=== PATIENT | female | born 1940 | race Caucasian/White ===

== ENCOUNTER 2017-06-05 06:03 | Day surgery (SDC) | payer MEDICARE, OTHER ==
[~2017-06-05] VITALS: Ht 154.9 cm; Wt 46.2 kg
[2017-06-05 06:04] VITALS: BP 120/75
[2017-06-05] MEDS ORDERED: FENTANYL PF 100 MCG/2ML ONE ×2 (07:03→09:20)
[2017-06-05] MEDS ORDERED: MIDAZOLAM 1 MG/ML, 2ML ONE (07:03)
[2017-06-05] MEDS ORDERED: BUPIVACAINE/PF 0.5% ONE (07:10)
[2017-06-05] MEDS ORDERED: THROMBIN 5,000 UNIT VIAL TP ONE (07:10)
[2017-06-05] MEDS ORDERED: KETOROLAC 30 MG/1 ML ONE (07:52)
[2017-06-05] MEDS ORDERED: BUPIVACAINE/PF 0.5% INFIL ONE (08:23)
[2017-06-05] MEDS ORDERED: HYDROmorphone 2 MG/ML, 1ML ONE (08:24)
[2017-06-05] MEDS ORDERED: MEPERIDINE/PF 25MG/0.5ML IVPush PRN (09:00)
[2017-06-05] MEDS ORDERED: hydrALAzine 20 MG/ML, 1ML IV PRN (09:00)
[2017-06-05] MEDS ORDERED: PROMETHAZINE 25 MG/ML, 1ML IV PRN (09:00)
[2017-06-05] MEDS ORDERED: DIAZEPAM 5 MG/ML, 2ML IVPush PRN (09:00)
[2017-06-05] MEDS ORDERED: PROMETHAZINE 12.5 MG SUPP PR PRN (09:00)
[2017-06-05] MEDS ORDERED: ACETAMINOPHEN 325 MG TABLET PO PRN (09:00)
[2017-06-05] MEDS ORDERED: ALBUTEROL SULFATE 2.5 MG/3 ML NPPB PRN (09:00)
[2017-06-05] MEDS ORDERED: HYDROmorphone 1 MG/ML, 1ML IV PRN (09:00)
[2017-06-05] MEDS ORDERED: EPHEDRINE 50 MG/ML, 1ML IVPush PRN (09:00)
[2017-06-05] MEDS ORDERED: OXYcodone 5 MG/5 ML ORAL.SOL UDC PO PRN (09:00)
[2017-06-05] MEDS ORDERED: ONDANSETRON 2MG/ML, 2ML IVPush PRN (09:00)
[2017-06-05] MEDS ORDERED: MIDAZOLAM 1 MG/ML, 2ML IV PRN (09:00)
[2017-06-05] MEDS ORDERED: METOPROLOL 1 MG/ML, 5ML IV PRN (09:00)
[2017-06-05] MEDS ORDERED: HYDROcodone/APAP 7.5-325MG/15ML UDC PO PRN (09:00)
[2017-06-05] MEDS ORDERED: LABETALOL 5MG/ML, 20ML IV PRN (09:00)
[2017-06-05] MEDS ORDERED: PLEASE ENTER ALLERGIES MC SCH (09:00)
[2017-06-05] MEDS ORDERED: ALBUTEROL/IPRATROPIUM 2.5MG/0.5MG, 3 ML NPPB PRN (09:00)
[2017-06-05] MEDS ORDERED: PROPOFOL 10 MG/ML, 20ML ONE (09:03)
[2017-06-05] MEDS ORDERED: CEFAZOLIN 1,000 MG ONE (09:03)
[2017-06-05] MEDS ORDERED: ONDANSETRON 2MG/ML, 2ML ONE (09:03)
[2017-06-05] MEDS ORDERED: DEXAMETHASONE 4 MG/ML, 1ML ONE (09:03)
[2017-06-05] MEDS ORDERED: OXYcodone 5 MG/5 ML ORAL.SOL UDC ONE (09:20)
[2017-06-05] MEDS: FENTANYL PF 100 MCG/2ML IV PRN ×2 (09:24→09:37)
[2017-06-05] MEDS ORDERED: HYDR-3307 PO (10:50)
== END 2017-06-05 12:05 | disposition home or self-care (01) ==
LOC: OR 06:03 → 4NOR 06:29 → OR 12:05
PROVIDERS: ATTEND Neurological Surgery
DX: G56.22 Lesion of ulnar nerve, left upper limb (principal); F17.210 Nicotine dependence, cigarettes, uncomplicated; Z87.39 Personal history of other diseases of the musculoskeletal system and connective tissue; Z98.890 Other specified postprocedural states; Z88.1 Allergy status to other antibiotic agents; Z91.030 Bee allergy status; Z72.89 Other problems related to lifestyle; Z90.49 Acquired absence of other specified parts of digestive tract
CPT/HCPCS: 64718; J0690; J1100; J1170; J1885; J2250; J2405; J2704; J3010; J3490

== ENCOUNTER 2020-03-12 13:38 | Outpatient (CLI) | payer MEDICARE ==
[~2020-03-12 13:38] MED LIST: HYDR-3246 PO
== END 2020-03-12 23:59 | disposition home or self-care (01) ==
LOC: WOUND 13:38
PROVIDERS: ATTEND Nurse Practitioner Family
DX: T21.25XA Burn of second degree of buttock, initial encounter (principal); T21.20XA Burn of second degree of trunk, unspecified site, initial encounter; L89.310 Pressure ulcer of right buttock, unstageable; I10 Essential (primary) hypertension; G89.4 Chronic pain syndrome; R32 Unspecified urinary incontinence; F17.210 Nicotine dependence, cigarettes, uncomplicated; X19.XXXA Contact with other heat and hot substances, initial encounter; Y93.89 Activity, other specified; Y92.89 Other specified places as the place of occurrence of the external cause; Y99.8 Other external cause status; Z90.49 Acquired absence of other specified parts of digestive tract; Z88.2 Allergy status to sulfonamides
CPT/HCPCS: 16020; G0463; 97597

== ENCOUNTER → 2020-03-19 | Outpatient (CLI) | payer MEDICARE | END | disposition home or self-care (01) | LOC: WOUND 10:50 | PROVIDERS: ATTEND Nurse Practitioner Family | DX: T21.25XD Burn of second degree of buttock, subsequent encounter (principal); T21.20XD Burn of second degree of trunk, unspecified site, subsequent encounter; L89.310 Pressure ulcer of right buttock, unstageable; I10 Essential (primary) hypertension; G89.4 Chronic pain syndrome; R32 Unspecified urinary incontinence; F17.210 Nicotine dependence, cigarettes, uncomplicated; Z90.49 Acquired absence of other specified parts of digestive tract; Z88.2 Allergy status to sulfonamides; X19.XXXD Contact with other heat and hot substances, subsequent encounter | CPT/HCPCS: G0463 ==

== ENCOUNTER 2020-03-26 13:22 | Outpatient (CLI) | payer MEDICARE | END 2020-03-26 23:59 | disposition home or self-care (01) | LOC: WOUND 13:22 | PROVIDERS: ATTEND Nurse Practitioner Family | DX: L89.313 Pressure ulcer of right buttock, stage 3 (principal); T21.25XD Burn of second degree of buttock, subsequent encounter; T21.20XD Burn of second degree of trunk, unspecified site, subsequent encounter; L89.310 Pressure ulcer of right buttock, unstageable; I10 Essential (primary) hypertension; G89.4 Chronic pain syndrome; R32 Unspecified urinary incontinence; F17.210 Nicotine dependence, cigarettes, uncomplicated; Z90.49 Acquired absence of other specified parts of digestive tract; Z88.2 Allergy status to sulfonamides; X19.XXXD Contact with other heat and hot substances, subsequent encounter | CPT/HCPCS: G0463 ==

== ENCOUNTER → 2020-06-04 | Outpatient (CLI) | payer MEDICARE ==
[~2020-06-04] MED LIST changes: +CHOL10003 PO; +FESO4TAB PO; +FLUT9.9S NAS; +FOLI1TAB32 PO; -HYDR-3246 PO; +HYDR-3248 PO; +METO25TA91 PO; +MULT-449 PO; +MV-M1TAB3 PO; +OMEP20TA62 PO; +ONDA4TAB7 PO; +PRAM0.255 PO; +SERT50TA PO; +THIA100T67 PO; +TIZA4CAP PO
[2020-06-04 12:39] LABS: BASOPHILS % (AUTO) 1 % (0-1); EOSINOPHILS % (AUTO) 3 % (1-7); LYMPHOCYTES % (AUTO) 42 % (22-44); MD NO; MEAN CORPUSCULAR HEMOGLOBIN 31.6 pg (27.0-34.8); MEAN CORPUSCULAR HGB CONC 33.2 g/dL (32.4-35.8); MONOCYTES % (AUTO) 9 % (2-9); NEUTROPHILS % (AUTO) 46 % (42-75); PLATELET COUNT 311 x10^3/uL (130-400); RED BLOOD COUNT 4.09 x10^6/uL (3.82-5.3); RED CELL DISTRIBUTION WIDTH 13.3 % (9.6-15.2)
[2020-06-04 12:41] LABS: ANION GAP 5 mmol/L (5-15); CALCIUM 8.8 mg/dL (8.5-10.1); CHLORIDE 101 mmol/L (98-107); INTERNATIONAL NORMALIZED RATIO 1.05 (0.93-1.1); PROTHROMBIN TIME 11.2 Seconds (9.6-11.5)
[2020-06-04 12:43] LABS: CREATININE 0.61 mg/dL (0.55-1.02)
[2020-06-04 13:17] LABS: MICROSCOPIC NOT IND
== END | disposition home or self-care (01) ==
LOC: STAR 10:40
PROVIDERS: ATTEND Neurological Surgery
DX: Z01.812 Encounter for preprocedural laboratory examination (principal); Z20.822 Contact with and (suspected) exposure to COVID-19; M48.062 Spinal stenosis, lumbar region with neurogenic claudication; M85.88 Other specified disorders of bone density and structure, other site
CPT/HCPCS: 71046; 80048; 81003; 85025; 85610; 85730; 87635; 93005